=== PATIENT | female | born 1960 | race Caucasian/White ===

== ENCOUNTER 2017-08-23 10:02 | Emergency (ER) | payer SELFPAY ==
[~2017-08-23] VITALS: Ht 157.5 cm; Wt 70.0 kg
[2017-08-23 10:07] VITALS: Ht 157.5 cm; Wt 70.0 kg
[2017-08-23] MEDS ORDERED: KETOROLAC 15 MG INJ IV STA (10:30)
[2017-08-23] MEDS ORDERED: SOD CHLORIDE 0.9% 1,000 ML IV STA (10:30)
[2017-08-23] MEDS ORDERED: ONDANSETRON 4 MG INJ IV STA (10:30)
[2017-08-23 11:20] LABS: ADD UMIC YES; UR ASCORBIC ACID NEGATIVE (NEGATIVE); UR BILIRUBIN (Dip) NEGATIVE (NEGATIVE); UR BLOOD (Dip) 1+ mg/dL (NEGATIVE); UR CLARITY CLEAR (CLEAR); UR COLOR YELLOW (YELLOW); UR GLUCOSE (Dip) NEGATIVE (NEGATIVE); UR KETONES (Dip) NEGATIVE (NEGATIVE); UR LEUKOCYTE ESTERASE (Dip) 2+ Leu/ul (NEGATIVE); UR NITRITE (Dip) NEGATIVE (NEGATIVE); UR RBC 3 /HPF (0-5); UR SPECIFIC GRAVITY (Dip) 1.009 (1.003-1.030); UR TOTAL PROTEIN (Dip) NEGATIVE (NEGATIVE); UR UROBILINOGEN (Dip) NEGATIVE (NEGATIVE)
--- NOTE | 2017-08-23 11:33 | RADRPT ---
PROCEDURE: XR Chest 1 View. CLINICAL INDICATION: Shortness of breath. Dizziness. TECHNIQUE: Single view of the chest was obtained. COMPARISON: None. FINDINGS: The cardiomediastinal silhouette is within normal limits. No consolidations are identified. No pneu mothorax is seen. Osseous structures are intact. IMPRESSION: No visualized active disease. RPTAT: AA .Los Grayson MD, Date Time Electronically viewed and signed by .Los Grayson MD, on 08/23/2017 11:33 .P/
[2017-08-23 11:35] LABS: ALANINE AMINOTRANSFERASE 32 IU/L (13-69); ALBUMIN 3.6 g/dl (3.3-4.9); ALBUMIN/GLOBULIN RATIO 1.09; ALKALINE PHOSPHATASE 50 IU/L (42-121); ANION GAP 12 (8-16); ASPARTATE AMINO TRANSFERASE 22 IU/L (15-46); BILIRUBIN,INDIRECT 0.2 mg/dl (0-1.1); BILIRUBIN,TOTAL 0.2 mg/dl (0.2-1.3); BLOOD UREA NITROGEN 7 mg/dl (7-20); CALCIUM 8.9 mg/dl (8.4-10.2); CARBON DIOXIDE 28 mmol/L (21-31); CHLORIDE 107 mmol/L (97-110); CREATININE 0.63 mg/dl (0.44-1.00); GLUCOSE 93 mg/dl (70-220); POTASSIUM 3.8 mmol/L (3.5-5.1); SODIUM 143 mmol/L (135-144); TOTAL PROTEIN 6.9 g/dl (6.1-8.1)
[2017-08-23] MEDS ORDERED: ONDA4TAB8 PO (11:49)
[2017-08-23] MEDS ORDERED: IBUP-1542 PO (11:49)
[2017-08-23] MEDS ORDERED: CEPH-443 PO (11:49)
[2017-08-23 11:54] LABS: TROPONIN-I < 0.012 ng/ml (0.00-0.12)
--- NOTE | 2017-08-23 11:54 | ERD ---
ER Documentation Chief Complaint Chief Complaint dizziness and nausea , syncope on monday HPI 57-year-old woman complains of dizziness and nausea 2 days, generalized weakness and headache as well. She had a near syncopal episode 2 days ago as well. She denies fevers or chills, no neck pain or stiffness, no recent antibiotic use, no recent travel, no chest pain or shortness of breath, no abdominal pain, no vomiting or diarrhea. ROS All systems reviewed and are negative except as per history of present illness. Medications Home Meds Active Scripts Ibuprofen* (Ibuprofen*) 600 Mg Tablet, 600 MG PO Q8 for PAIN, #30 TAB Prov:MILAN URBINA MD 08/23/17 Cephalexin* (Keflex*) 500 Mg Capsule, 500 MG PO TID for 5 Days, CAP Prov:MILAN URBINA MD 08/23/17 Ondansetron Hcl* (Zofran*) 4 Mg Tablet, 4 MG PO Q8H Y for NAUSEA AND/OR VOMITING , #12 TAB Prov:MILAN URBINA MD 08/23/17 Allergies Allergies: Coded Allergies: No Known Allergy (Unverified , 08/23/17) PMhx/Soc Hypertension Medical and Surgical Hx: pt denies Medical Hx History of Surgery: Yes (appendectomy) Hx Alcohol Use: No Hx Substance Use: No Hx Tobacco Use: No Smoking Status: Unknown if ever smoked FmHx Family History: No diabetes Physical Exam Vitals Vital Signs Date Time Temp Pulse Resp B/P Pulse Ox O2 Delivery O2 Flow Rate FiO2 08/23/17 13:24 98.0 79 16 145/58 99 Room Air 08/23/17 10:07 98.1 71 18 164/85 97 Physical Exam GENERAL: Well-developed, appears dehydrated, afebrile HEENT: Dry mucous membranes, pink conjunctiva, no cervical spine tenderness or step-off deformities, no goiter, no jaundice or icterus, extraocular movements intact without pain. No submandibular induration, and no pharyngeal erythema NEURO: Alert and oriented 3, cranial nerves II through XII intact bilaterally, pupils equal round reactive to light, no focal deficits or facial asymmetry, sensation intact distally Strength 5/5 in upper and lower extremities bilaterally CARDIAC: Regular rate and rhythm, no murmurs rubs or gallops LUNGS: Clear bilaterally no wheezing crackles or stridor ABDOMEN: Soft nontender, no guarding, no rigidity, no rebound, no psoas sign no obturator sign. Normoactive bowel sounds SKIN: Warm and dry to touch, no abrasions, contusions, or hematomas, no lacerations, no ecchymosis, no target lesions, and without ulcers EXTREMITIES: No clubbing cyanosis or edema, calves are bilaterally symmetrical, no Homans sign, no popliteal cord sign. Distal pulses equal and bilateral PSYCH: Normal affect without agitation or irritability Result Diagram: 08/23/17 1055 08/23/17 1055 Results 24 hrs Laboratory Tests Test 08/23/17 10:55 White Blood Count 4.210^3/ul Red Blood Count 4.1210^6/ul Hemoglobin 12.9g/dl Hematocrit 38.5% Mean Corpuscular Volume 93.4fl Mean Corpuscular Hemoglobin 31.3pg Mean Corpuscular Hemoglobin Concent 33.5g/dl Red Cell Distribution Width 12.7% Platelet Count 35776^3/UL Mean Platelet Volume 10.9fl Neutrophils % 44.6% Lymphocytes % 48.3% Monocytes % 5.5% Eosinophils % 1.2% Basophils % 0.2% Nucleated Red Blood Cells % 0.0/100WBC Neutrophils # 1.910^3/ul Lymphocytes # 2.010^3/ul Monocytes # 0.210^3/ul Eosinophils # 0.110^3/ul Basophils # 0.010^3/ul Nucleated Red Blood Cells # 0.010^3/ul Urine Color YELLOW Urine Clarity CLEAR Urine pH 7.0 Urine Specific [place] 1.009 Urine Ketones NEGATIVEmg/dL Urine Nitrite NEGATIVEmg/dL Urine Bilirubin NEGATIVEmg/dL Urine Urobilinogen NEGATIVEmg/dL Urine Leukocyte Esterase 2+Vu/ul Urine Microscopic RBC 3/HPF Urine Microscopic WBC 11/HPF Urine Hemoglobin 1+mg/dL Urine Glucose NEGATIVEmg/dL Urine Total Protein NEGATIVEmg/dl Sodium Level 143mmol/L Potassium Level 3.8mmol/L Chloride Level 107mmol/L Carbon Dioxide Level 28mmol/L Anion Gap 12 Blood Urea Nitrogen 7mg/dl Creatinine 0.63mg/dl Glucose Level 93mg/dl Calcium Level 8.9mg/dl Total Bilirubin 0.2mg/dl Direct Bilirubin 0.00mg/dl Indirect Bilirubin 0.2mg/dl Aspartate Amino Transf (AST/SGOT) 22IU/L Alanine Aminotransferase (ALT/SGPT) 32IU/L Alkaline Phosphatase 50IU/L Troponin I < 0.012ng/ml Total Protein 6.9g/dl Albumin 3.6g/dl Globulin 3.30g/dl Albumin/Globulin Ratio 1.09 Lipase 74U/L Current Medications Medications (Trade) Dose Ordered Sig/Tara Route PRN Reason Start Time Stop Time Status Last Admin Dose Admin Sodium Chloride (NS) 1,000 ml @ 2,000 mls/hr Q30M STAT IV 08/23/17 10:30 08/23/17 10:59 DC 08/23/17 11:05 Ondansetron HCl (Zofran Inj) 4 mg ONCE STAT IV 08/23/17 10:30 08/23/17 10:34 DC 08/23/17 11:05 Ketorolac Tromethamine 15 mg 15 mg ONCE STAT IV 08/23/17 10:30 08/23/17 10:34 DC 08/23/17 11:05 Ceftriaxone Sodium (Rocephin) 50 ml @ 100 mls/hr ONCE ONCE IVPB 08/23/17 12:00 08/23/17 12:29 DC 08/23/17 11:50 Procedures/MDM IV line was established patient was placed on vehicle monitor technician rhythm strip revealed a sinus rhythm at about 70 bpm with upright P and T waves. Patient was afebrile I administered 2 L normal saline intravenously, Toradol 15 mg IV 1 for headache , and Zofran 4 mg IV 1 for dizziness. EKG performed, read by me: 69 bpm, normal sinus rhythm, normal axis, no acute ST segment changes, narrow QRS complex, with good R-wave progression in precordial leads. One AP view of the chest performed, read by me reveals no acute infiltrates, normal mediastinum, sharp costophrenic and cardiac borders, no air under the diaphragm. Otherwise unremarkable chest x-ray. CT scan of the brain was negative for acute bleed mass or shift. CBC and electrolytes were normal, liver function tests were normal, troponin was negative, urine analysis was positive for infection consistent with her symptomatology. I treated her here with ceftriaxone 1 g IV. Patient symptoms completely resolved and she feels much better. Differential diagnoses considered, included but not limited to acute coronary syndrome, pulmonary embolism, aortic dissection, abdominal aortic aneurysm, sepsis, stroke, meningitis, encephalitis, pneumonia, appendicitis, cholecystitis , bowel obstruction, pyelonephritis, nephrolithiasis, cystitis, as well as metabolic, hematologic, and electrolyte abnormalities. As well as abscess, cellulitis, fractures, and dislocations. Patient feels much better at this time, and vital signs are normal, symptoms have improved. I did give strict instructions to return to the ED if symptoms continue or worsen, patient will otherwise follow-up with primary care physician. Patient understood instructions and agreed to plan. Disclaimer: Inadvertent spelling and grammatical errors are likely due to EHR/ dictation software use and do not reflect on the overall quality of patient care. Also, please note that the electronic time recorded on this note does not necessarily reflect the actual time of the patient encounter. Departure Diagnosis: Primary Impression: Dizziness Additional Impressions: Dehydration Acute UTI Condition: Good Patient Instructions: Dehydration (6Y-Adult), Dizziness, Unk Cause, Bladder Infection, Female (Adult) MILAN URBINA MD Aug 23, 2017 11:54
[2017-08-23 11:56] LABS: BASOPHILS % 0.2 % (0.0-2.0); EOSINOPHILS # 0.1 10^3/ul (0.0-0.5); EOSINOPHILS % 1.2 % (0.0-7.0); HEMOGLOBIN 12.9 g/dl (12.0-16.0); LYMPHOCYTES % 48.3 % (15.0-51.0); MEAN CORPUSCULAR HEMOGLOBIN 31.3 pg (29.0-33.0); MEAN CORPUSCULAR HGB CONC 33.5 g/dl (32.0-37.0); MEAN CORPUSCULAR VOLUME 93.4 fl (82.0-101.0); MEAN PLATELET VOLUME 10.9 fl (7.4-10.4); MONOCYTE # 0.2 10^3/ul (0.3-0.9); MONOCYTES % 5.5 % (0.0-11.0); NEUTROPHIL # 1.9 10^3/ul (1.6-7.5); NEUTROPHILS % 44.6 % (39.0-77.0); PLATELET COUNT 188 10^3/UL (140-415); RED BLOOD COUNT 4.12 10^6/ul (4.20-5.40); RED CELL DISTRIBUTION WIDTH 12.7 % (11.5-14.5); WHITE BLOOD COUNT 4.2 10^3/ul (4.8-10.8)
[2017-08-23] MEDS ORDERED: CEFTRIAXONE 1 GM/50 ML (PMX) 50 ML IVPB ONE (12:00)
[2017-08-23 12:01] LABS: HEMATOCRIT 38.5 % (37.0-47.0)
--- NOTE | 2017-08-23 12:26 | RADRPT ---
PROCEDURE: CT Brain without contrast. CLINICAL INDICATION: Fall, dizziness. TECHNIQUE: A CT of the brain without contrast was performed utilizing axial sections from the skul l base through the vertex. One or more the following does reduction techniques were utilized: Automa sherice exposure control, adjustment of the mA/ or kV according to patient's size, or use of iterative r econstruction technique. Total exam CTDIvol is 43.95 MGy and DLP is 630.2 mGy-cm. DICOM images are available. COMPARISON: None available. FINDINGS: The ventricles and sulci are mildly prominent indicative of volume loss. There is no intracranial h emorrhage, mass effect or midline shift. No abnormal intra-axial or extra-axial fluid collections a re seen. The randolph/white matter differentiation is well preserved. There are mild foci of hypoattenuation in the white matter, which are nonspecific in etiology but li quique reflect chronic small vessel ischemic changes. There are mild intracranial vascular calcificati ons consistent with atherosclerosis. The visualized paranasal sinuses demonstrate mild to moderate mucosal thickening with partial opacification of right frontoethmoidal recess with air fluid levels. The mastoid air cells are essentially clear. IMPRESSION: 1. No acute intracranial hemorrhage, transcortical infarction or mass effect. 2. Mild intracranial atherosclerosis and chronic small vessel ischemic changes. 3. Mild generalized cerebral volume loss. 4. Mild to moderate paranasal sinus disease with partial opacification of right frontoethmoidal rec ess with air fluid levels, correlate for acute sinusitis. RPTAT: HFN .Yung Duque MD, Date Time Electronically viewed and signed by .Yung Duque MD, MD on 08/23/2017 12:26 .N/
[2017-08-23 13:24] VITALS: BP 145/58; PULSE 79; RESP 16; TEMP 98
== END 2017-08-23 13:25 | disposition home or self-care (01) ==
LOC: E/R 10:02
DX: R42 Dizziness and giddiness (principal); E86.0 Dehydration; N39.0 Urinary tract infection, site not specified
CPT/HCPCS: 36415; 70450; 71010; 80053; 81001; 83690; 84484; 85025; 87086; 87400; 96374; 96375; 99285; J0696; J1885; J2405; J7030

== ENCOUNTER 2018-11-07 08:32 | Emergency (ER) | payer MEDICAID, OTHER ==
[~2018-11-07] VITALS: Wt 63.5 kg
[~2018-11-07 08:32] MED LIST: CEPH-443 PO; IBUP-1542 PO; ONDA4TAB8 PO
[2018-11-07 08:35] VITALS: BP 161/81; PULSE 84; RESP 47
[2018-11-07] MEDS ORDERED: KETOROLAC 30 MG INJ IM STA (09:25)
[2018-11-07] MEDS ORDERED: METHOCARBAMOL 750 MG TAB PO ONE (09:30)
[2018-11-07] MEDS ORDERED: IBUP-1561 PO (10:46)
[2018-11-07] MEDS ORDERED: ACET-141 PO (10:46)
[2018-11-07] MEDS ORDERED: METH750T93 PO (10:46)
--- NOTE | 2018-11-21 11:07 | ERD ---
ER Documentation Chief Complaint Chief Complaint seen on 11/07/18 RIGHT SHOUULDER PAIN X3 WEEKS, NO INJURY, PAIN ON AND OFF, WORSE NOW HPI 58-year-old female presents for right shoulder pain times 3 weeks. Pain is noted to be intermittent. She states that the pain is about 8 out of 10 at its worse. Described as sharp. No prior similar symptoms. Been taking Tylenol without relief. Denies chest pain or shortness of breath. Denies fevers or chills. She does not note any heavy lifting. ROS All systems reviewed and are negative except as per history of present illness. Medications Home Meds Active Scripts Methocarbamol* (Robaxin*) 750 Mg Tablet, 750 MG PO TID PRN for MUSCLE SPASMS, #30 TAB Prov:JJ DEWITT DO 11/07/18 Ibuprofen* (Motrin*) 400 Mg Tab, 400 MG PO Q6H PRN for PAIN AND OR ELEVATED TEMP, #30 TAB Prov:JJ DEWITT DO 11/07/18 Acetaminophen* (Acetaminophen*) 500 MG Extra Strength Tablet, 500 MG PO Q4H PRN for PAIN AND OR ELEVATED TEMP, #30 TAB Prov:JJ DEWITT DO 11/07/18 Ibuprofen* (Ibuprofen*) 600 Mg Tablet, 600 MG PO Q8 for PAIN, #30 TAB Prov:MILAN URBINA MD 08/23/17 Cephalexin* (Keflex*) 500 Mg Capsule, 500 MG PO TID for 5 Days, CAP Prov:MILAN URBINA MD 08/23/17 Ondansetron Hcl* (Zofran*) 4 Mg Tablet, 4 MG PO Q8H PRN for NAUSEA AND/OR VOMITING, #12 TAB Prov:MILAN URBINA MD 08/23/17 Allergies Allergies: Coded Allergies: No Known Allergy (Unverified , 11/07/18) PMhx/Soc History of Surgery: Yes (appendectomy) Hx Alcohol Use: No Hx Substance Use: No Hx Tobacco Use: No Smoking Status: Current some day smoker Physical Exam Vitals Temperature 98, pulse 84, respiration 18, blood pressure 161/81, O2 saturation 100% room air vital signs reviewed, there was a documented respiratory rate of 47 however r espiration was measured by myself and patient respiratory rate was 18, she was in no distress. breathing comfortably, speaking in full sentences, no use of accessory muscles. Respiratory rate of 47 recorded likely an error. Physical Exam Const: No acute distress Neck: Full range of motion. No meningismus. Resp: Clear to auscultation bilaterally Cardio: Regular rate and rhythm, no murmurs, bilateral radial pulses intact and equal Abd: Soft, non tender, non distended. Normal bowel sounds Skin: No petechiae or rashes Back: No midline or flank tenderness Ext: No cyanosis, or edema, there is right shoulder pain to palpation diffusely, however she does have 5 out of 5 muscle strength bilateral upper extremities Neur: Awake and alert, bilateral upper and lower extremity sensation intact Psych: Normal Mood and Affect Results 24 hrs Current Medications Medications Dose Sig/Tara Start Time Status Last (Trade) Ordered Route PRN Stop Time Admin Dose Reason Admin Ketorolac 30 mg ONCE STAT 11/07/18 DC 11/07/18 Tromethamine IM 09:25 11/07/18 09:33 (Toradol) 09:26 750 mg ONCE ONCE 11/07/18 DC 11/07/18 Methocarbamol PO 09:30 11/07/18 09:32 (Robaxin) 09:31 Procedures/MDM Medical Decision Making: Differential diagnosis includes but not limited to muscle strain, ligamentous sprain, dislocation, fracture Patient appeared well on physical exam. There was diffuse tenderness palpation over the right shoulder ED course: Patient was given Robaxin and Toradol. Symptoms improved with treatment. Right shoulder x-ray was unremarkable Prescription(s): Patient given prescription for Robaxin, Motrin, Tylenol. Patient possibly has muscle strain. Patient advised to follow up with PCP in 1-2 days. Patient advised to return to ED for new or worsening symptoms. Patient stable on discharge from the ED. Disclaimer: Inadvertent spelling and grammatical errors are likely due to EHR/dictation software use and do not reflect on the overall quality of patient care. Also, please note that the electronic time recorded on this note does not necessarily reflect the actual time of the patient encounter. Departure Diagnosis: Primary Impression: Shoulder pain Condition: Fair Patient Instructions: Shoulder Pain (Uncertain Cause) Referrals: COMMUNITY CLINICS YOU HAVE RECEIVED A MEDICAL SCREENING EXAM AND THE RESULTS INDICATE THAT YOU DO NOT HAVE A CONDITION THAT REQUIRES URGENT TREATMENT IN THE EMERGENCY DEPARTMENT. FURTHER EVALUATION AND TREATMENT OF YOUR CONDITION CAN WAIT UNTIL YOU ARE SEEN IN YOUR DOCTORS OFFICE WITHIN THE NEXT 1-2 DAYS. IT IS YOUR RESPONSIBILITY TO MAKE AN APPOINTMENT FOR FOLOW-UP CARE. IF YOU HAVE A PRIMARY DOCTOR --you should call your primary doctor and schedule an appointment IF YOU DO NOT HAVE A PRIMARY DOCTOR YOU CAN CALL OUR PHYSICIAN REFERRAL HOTLINE AT IF YOU CAN NOT AFFORD TO SEE A PHYSICIAN YOU CAN CHOSE FROM THE FOLLOWING [facility] [address] [facility] [address] [facility] [place] [address] [facility] [address] [facility]. [facility] [address] [facility]. [facility]. [address] Additional Instructions: Call your primary care doctor TOMORROW for an appointment during the next 1-2 days.See the doctor sooner or return here if your condition worsens before your appointment time. JJ DEWITT DO Nov 21, 2018 11:07
== END 2018-11-07 10:52 | disposition home or self-care (01) ==
LOC: FTE 08:32
DX: M25.511 Pain in right shoulder (principal); F17.210 Nicotine dependence, cigarettes, uncomplicated
CPT/HCPCS: 73030; 96372; J1885; Z7502; Z7610